=== PATIENT | male | born 2000 | race Hispanic/Latino ===

== ENCOUNTER 2019-10-16 23:46 | Emergency (ER) | payer SELFPAY ==
[2019-10-17] MEDS ORDERED: HYDROcodone/Acetaminophen 5/325 mg Tablet ONE (00:47)
[2019-10-17] MEDS ORDERED: Ondansetron ODT 8 MG TAB ONE (00:47)
[2019-10-17 01:02] LABS: #Basophils 0.1 thou/uL (0.0-0.2); #Lymphocytes 0.8 thou/uL (1.20-3.40); #Monocytes 0.7 thou/uL (0.11-0.59); #Neutrophils 5.2 thou/uL (1.40-6.50); %Basophils 0.7 % (0.0-1.0); %Eosinophils 0.6 % (0.0-10.0); %Lymphocytes 11.7 % (28.0-48.0); Hemoglobin 16.3 g/dL (14.0-18.0); Mean Corpuscular HGB CONC 33.9 g/dL (32.0-36.0); Mean Corpuscular Hemoglobin 27.2 pg (25.0-35.0); Mean Corpuscular Volume 80.1 fL (78.0-98.0); Mean Platelet Volume 7.7 fL (7.4-10.4); Platelet Count 241 thou/uL (130-400); RBC Distribution Width 12.7 % (11.5-14.5); Red Blood Cell (RBC) Count 6.02 mill/uL (4.00-5.20); White Blood Cell (WBC) Count 6.8 thou/uL (4.8-10.8)
[2019-10-17 01:05] LABS: Bacteria/HPF None Seen HPF (None Seen); Bilirubin Negative (Negative); Blood, Urine 2+ (Negative); Clarity Turbid (Clear); Glucose, Urine (Dipstick) Normal (Negative); Leukocyte 25 Leu/uL (Negative); Mucous/LPF 4+ LPF (<2+); Nitrite Negative (Negative); Protein, Urine (Dipstick) 600 mg/dL (Neg-Trace); RBC/HPF Greater than 50 HPF (0-3); Squamous Epithelial None Seen HPF (0-3); WBC/HPF 21-50 HPF (0-3)
[2019-10-17 01:16] LABS: ALT (SGPT) 30 U/L (8-55); AST (SGOT) 28 U/L (10-45); Albumin 4.4 g/dL (3.5-5.0); Alkaline Phosphatase 103 U/L (50-130); Anion Gap 11 mmol/L (10-20); BUN (Urea Nitrogen) 9 mg/dL (8.4-21.0); Bilirubin, Total 0.4 mg/dL (0.2-1.2); Calc. Creatinine Clearance 0 mL/min (70-130); Calcium 9.6 mg/dL (7.8-10.44); Carbon Dioxide 26 mmol/L (22-29); Chloride 101 mmol/L (98-107); Estimated GFR-MDRD Greater than 90; Globulin 3.7 g/dL (2.4-3.5); Glucose 89 mg/dL (70-105); Lipase 17 U/L (8-78); Potassium 3.4 mmol/L (3.5-5.1); Protein, Total 8.1 g/dL (6.0-8.3); Sodium 135 mmol/L (136-145)
[2019-10-17] MEDS ORDERED: cefTRIAXone\\ROCEPHIN 2 GM VIAL ONE (02:16)
[2019-10-17] MEDS ORDERED: Sodium Chloride 0.9% 100 ML ONE (02:16)
--- NOTE | 2019-10-17 07:24 | CT ---
PRELIMINARY REPORT/[facility]/EMERGENCY AFTER HOURS PROCEDURE PROCEDURE: CT Scan Abdomen and Pelvis without IV Contrast Material. HISTORY: Diffuse right-sided abdomen pain for one day. TECHNIQUE: Axial images were performed with multiplanar reconstructions without IV contrast material. The patient was not given oral contrast material. COMPARISON: None . FINDINGS: Clear lung bases. Liver, spleen, adrenals, and pancreas show no abnormality. Kidneys show no urinary tract stones or o bstructive uropathy. Normal biliary tract. No abdominal ascites or pneumoperitoneum. Normal aorta. Mild mesenteric lymphadenopathy to 1.6 cm may represent lymphadenitis. No bowel obstruction or inflammation. Appendix is not visualized. Pelvis shows no masses or free fluid. Normal urinary bladder. No acute bony abnormality. IMPRESSION: Possible mesenteric lymphadenitis with prominent nodes. No other significant abnormality identified. ELECTRONICALLY SIGNED BY: Jordan Kessler MD Oct 17, 2019 1:58:17 AM CDT This report is intended for review by the ordering physician only, in accordance of law. If you recei ve this report in error, please call [facility] at [phone]. FINAL REPORT Exam: Abdomen CT without contrast Pelvic CT without contrast HISTORY: Diffuse abdominal pain, right-sided. Previous appendectomy COMPARISON: None FINDINGS: Abdomen CT: Lung bases:Clear. Heart size: Normal heart size. Aorta: Normal caliber aorta. Solid organs: Limited evaluation due to technique. Grossly no solid organ abnormality. Lymph nodes: No gastrohepatic, retrocrural or periportal lymphadenopathy. Gallbladder: No acute abnormality. Mesentery: No mesenteric mass, free air or free fluid. There are scattered enlarged mesenteric lymph nodes. Kidneys: Bilaterally, no hydronephrosis, nephrolithiasis or perinephric fat stranding. Bilateral uret ers have a normal caliber. No hydroureter, periureteral fat stranding or ureterolithiasis. Alimentary canal: Limited evaluation by the lack of oral contrast. No bowel obstruction. CT PELVIS: No mass, adenopathy, free air or free fluid. Urinary bladder: Unremarkable. Osseous structures: No lytic or blastic lesions IMPRESSION: 1. This report is in agreement with initial report by [facility] 2. No obstructive uropathy. 3. Enlarged mesenteric lymph nodes. Correlate for mesenteric lymphadenitis. Transcribed Date/Time: 10/17/2019 8:23 AM
== END 2019-10-17 02:47 | disposition home or self-care (01) ==
LOC: ERS 23:46
DX: N12 Tubulo-interstitial nephritis, not specified as acute or chronic (principal); R10.84 Generalized abdominal pain
CPT/HCPCS: 36415; 74176; 80053; 81003; 81015; 83690; 85025; 96365; J0696; J3490; Q0162

== ENCOUNTER 2020-04-11 12:33 | Emergency (ER) | payer SELFPAY ==
[2020-04-11] MEDS ORDERED: Iopamidol-370 76% 500 ML 1 ML ONE (13:02)
[2020-04-11 13:11] LABS: #Eosinphils 0.1 thou/uL (0.0-0.7); #Lymphocytes 0.9 thou/uL (1.20-3.40); #Monocytes 0.8 thou/uL (0.11-0.59); #Neutrophils 13.4 thou/uL (1.40-6.50); %Basophils 0.1 % (0.0-1.0); %Eosinophils 0.6 % (0.0-10.0); %Lymphocytes 5.9 % (28.0-48.0); %Monocytes 5.1 % (0.0-4.0); %Neutrophils 88.3 % (31.0-61.0); Hemoglobin 17.6 g/dL (14.0-18.0); Mean Corpuscular HGB CONC 33.6 g/dL (32.0-36.0); Mean Corpuscular Hemoglobin 27.5 pg (25.0-35.0); Mean Corpuscular Volume 81.8 fL (78.0-98.0); Mean Platelet Volume 7.6 fL (7.4-10.4); Platelet Count 266 thou/uL (130-400); RBC Distribution Width 13.3 % (11.5-14.5); Red Blood Cell (RBC) Count 6.42 mill/uL (4.00-5.20); White Blood Cell (WBC) Count 15.2 thou/uL (4.8-10.8)
[2020-04-11 13:30] LABS: Bacteria/HPF None Seen HPF (None Seen); Bilirubin Negative (Negative); Blood, Urine 3+ (Negative); Clarity Clear (Clear); Glucose, Urine (Dipstick) Normal (Negative); Ketone, Urine 10 mg/dL (Negative); Leukocyte Negative Leu/uL (Negative); Mucous/LPF 2+ LPF (<2+); Nitrite Negative (Negative); Protein, Urine (Dipstick) 600 mg/dL (Neg-Trace); RBC/HPF Greater than 50 HPF (0-3); Specific Gravity, Urine 1.032 (1.002-1.036); Squamous Epithelial None Seen HPF (0-3); Urobilinogen Normal mg/dL (Less than 2); WBC/HPF 0-3 HPF (0-3)
[2020-04-11] MEDS ORDERED: Morphine 4 MG/ML VIAL ONE (13:34)
[2020-04-11] MEDS ORDERED: Ondansetron PF 4 MG/2 ML Vial ONE (13:35)
[2020-04-11 13:37] LABS: ALT (SGPT) 79 U/L (8-55); AST (SGOT) 58 U/L (5-34); Albumin 4.5 g/dL (3.5-5.0); Alkaline Phosphatase 98 U/L (50-130); Anion Gap 15 mmol/L (10-20); BUN (Urea Nitrogen) 14 mg/dL (8.9-20.6); Calc. Creatinine Clearance 0 mL/min (70-130); Carbon Dioxide 25 mmol/L (22-29); Chloride 102 mmol/L (98-107); Globulin 3.6 g/dL (2.4-3.5); Glucose 99 mg/dL (70-105); Lipase 14 U/L (8-78); Potassium 4.5 mmol/L (3.5-5.1); Protein, Total 8.1 g/dL (6.0-8.3); Sodium 137 mmol/L (136-145)
--- NOTE | 2020-04-11 14:15 | CT ---
CT OF THE ABDOMEN AND PELVIS WITH CONTRAST: COMPARISON: 10/17/2019. HISTORY: Abdominal pain in the left lower quadrant of the abdomen that radiates to the upper right side. TECHNIQUE: Multiple contiguous axial images were obtained in a CT of the abdomen and pelvis with contrast. Sagi ttal and coronal reformats were performed. FINDINGS: The liver, gallbladder, kidneys, adrenal glands, spleen, and pancreas are unremarkable. No free air, free fluid, or stranding changes are seen in the abdomen or pelvis. The large and small bowel are unremarkable. The mesenteric lymph nodes are prominent but not signifi cantly changed compared to the prior exam. No enlarged retroperitoneal or pelvic sidewall lymph node s are seen. No inguinal adenopathy is seen. The osseous structures, visualized inferior thorax, and abdominal wall soft tissues are unremarkable. IMPRESSION: 1. Stable slight prominence of the mesenteric lymph nodes. 2. No acute intraabdominal/pelvic abnormality. POS: [facility]
[2020-04-11] MEDS ORDERED: Dicyclomine 20 MG TAB ONE (15:23)
[2020-04-12 22:55] LABS: Chlam.trachomatis by PCR,Urine DETECTED (NotDetected)
== END 2020-04-11 16:05 | disposition home or self-care (01) ==
LOC: ERS 12:33
DX: R11.2 Nausea with vomiting, unspecified (principal); R19.7 Diarrhea, unspecified; R31.9 Hematuria, unspecified; R10.32 Left lower quadrant pain
CPT/HCPCS: 74177; 80053; 81003; 81015; 83690; 85025; 87491; 87591; 96374; 96375; J2270; J2405; Q9967